=== PATIENT | male | born 1955 | race Caucasian/White ===

== ENCOUNTER 2017-08-13 15:08 | Day surgery (SDC) | payer OTHER ==
[2017-08-13] MEDS ORDERED: NS 500 ML IV ONE (15:09)
[2017-08-13] MEDS ORDERED: ATROPINE SULFATE 1 MG/10 ML SYR IVP ONE (15:09)
[2017-08-13] MEDS ORDERED: fentaNYL 100 MCG/2 ML INJ IVP ONE (15:09)
[2017-08-13] MEDS ORDERED: BENZOCAINE UNIT DOSE SPRAY HURRICAINE MM ONE (15:09)
[2017-08-13] MEDS ORDERED: MIDAZOLAM 2 MG/2 ML VIAL IVP ONE (15:09)
--- NOTE | 2017-08-13 15:51 | PDGENHP ---
History & Physical Chief Complaint: Palpitations History of Present Illness: 62-year-old history of bicuspid aortic valve here with acute onset of palpitations associated with vague chest discomfort. He was seen at the [facility] diagnosed with atrial fibrillation a left bundle branch block and is referred for WINSOME cardioversion. He has been NPO since 6:00 a.m. He is anticoagulated with Eliquis Relevant Physical Exam: 134 irregular. Blood pressure 130/70. No JVP. Chest is clear to auscultation percussion. Cardiac exam showed irregular irregular rhythm with a 2/6 systolic murmur. Abdomen is soft nontender. Extremities are free of edema. Neurological he is alert and oriented with normal mood and affect. He has a dysconjugate gaze. Skin examination revealed no rash. Cardiorespiratory Assessment: Atrial fibrillation with rapid ventricular response symptomatic with stable vital signs. Plan for WINSOME cardioversion today. Anticoagulation for 30 days. Clinical follow-up
[2017-08-13 15:57] LABS: INR 1.16 (0.83-1.16)
[2017-08-13] MEDS ORDERED: PROPOFOL 200 MG/20 ML VIAL ONE ×2 (16:24→16:30)
[2017-08-13] MEDS ORDERED: LIDOCAINE 1% 5 ML SDV ONE (16:24)
[2017-08-13] MEDS ORDERED: SUCCINYLCHOLINE CHLORIDE 200 MG/10 ML SYR IVP ONE (16:25)
--- NOTE | 2017-08-13 16:43 | PDTEE1 ---
WINSOME Cardioversion Procedure Procedure: electrical cardioversion, transesophageal echo Indications: atrial fibrillation Consent: signed and in chart Anticoagulation: eliquis Procedural Details: Pads were placed in anterior-posterior position. WINSOME probe was advanced and standard images obtained. There is no evidence of left atrial or left atrial appendage thrombus. Synchronized cardioversion attempt #1: 200J Results: normal sinus rhythm Conclusions: successful WINSOME cardioversion (Bicuspid aortic valve with mild to moderate AI.)
--- NOTE | 2017-08-13 17:08 | CPEKG ---
Heart Rate: 95 RR Interval: 632 P-R Interval: 144 QRSD Interval: 120 QT Interval: 432 QTC Interval: 543 P Maxwell: 61 QRS Maxwell: 13 T Wave Maxwell: 176 EKG Severity - ABNORMAL ECG - EKG Impression: SINUS RHYTHM EKG Impression: VENTRICULAR PREMATURE COMPLEX EKG Impression: LEFT BUNDLE BRANCH BLOCK Electronically Signed By: Rodney Chang 15-Aug-2017 08:53:13
== END 2017-08-13 18:26 | disposition home or self-care (01) ==
LOC: FCATH 15:08
PROVIDERS: ATTEND Internal Medicine
PROC: 5A2204Z Restoration of Cardiac Rhythm, Single (ICD-10-PCS; principal; 2017-08-13)
PROC: B245ZZ4 Ultrasonography of Left Heart, Transesophageal (ICD-10-PCS; principal; 2017-08-13)
DX: I48.91 Unspecified atrial fibrillation (principal); R53.82 Chronic fatigue, unspecified; I44.7 Left bundle-branch block, unspecified
CPT/HCPCS: J0330; J0461; J2704